=== PATIENT | female | born 1955 | race Caucasian/White ===

== ENCOUNTER → 2017-04-07 | Outpatient (CLI) | payer OTHER ==
[~2017-04-07] MED LIST: ATOR20TA PO; CARV3.12 PO; SERT-132 PO
--- NOTE | 2017-04-07 10:36 | RADRPT ---
EXAM DATE/TIME: 04/07/2017 00:00 [place] COMPARISON: No previous studies available for comparison. INDICATIONS : Dysphagia since cervical spine surgery 1 month ago; Trouble with thick foods. FLUORO TIME: 1.1 minutes IMAGE COUNT: 0 CONTRAST: Dose as prescribed by speech pathologist. MEDICAL HISTORY : Hypertension. Carcinoma, breast. SURGICAL HISTORY : Mastectomy. Anterior cervical fusion. ENCOUNTER: Initial ACUITY: 1 month PAIN SCORE: 0/10 LOCATION: Esophagus. FINDINGS: A modified barium swallow was performed with speech pathology. Patient was given a variety of liquids to swallow. For a full detailed report, see report by the speech pathologist. CONCLUSION: Normal examination. Salvatore Heredia MD on April 07, 2017 at 10:34 Board Certified Radiologist. This report was verified electronically.
== END ==
LOC: HRAD 09:51
PROVIDERS: ATTEND Family Medicine
DX: R13.10 Dysphagia, unspecified (principal)
CPT/HCPCS: 74230; 92611; G8996; G8997; G8998